=== PATIENT | male | born 1935 | race Caucasian/White ===

== ENCOUNTER → 2017-02-07 | Day surgery (SDC) | payer OTHER ==
[~2017-02-07] MED LIST: ACETAMINOPHEN/HYDROcodone 325 MG/5 MG TAB ONE; AMLO5TAB22 PO; BUPIVACAINE/EPINEPHRINE 0.5% PF 10 ML VIAL ONE; BUSP10 PO; DOXA1TAB67 PO; EPINEPHrine HCL (1:1000) 1 MG/ML VIAL OTHER ONE; GABA300C3 PO; HYDR50TA5 PO; KETOROLAC TROMETHAMINE 30 MG/ML (IVP) VIAL IV PUSH ONE; LACTATED RINGER'S 1000 ML INJ 1,000 ML ONE; LISI40TA PO; METF500 PO; ONDANSETRON HCL 4 MG/2 ML VIAL IV PUSH ONE; PROPOFOL 200 MG/20 ML AMP IV ONE; VITA10002 PO; VITATAB25 PO; ZOCO40TA PO; ceFAZolin INJ 1,000 MG VIAL ONE
--- NOTE | 2017-02-07 21:28 | MP ---
cc: CHEPE LYNN DATE OF SURGERY 02/07/2017 PREOPERATIVE DIAGNOSIS Right knee medial and lateral meniscus tear. POSTOPERATIVE DIAGNOSES Right knee medial and lateral meniscus tear. PROCEDURE Right knee arthroscopic partial medial and lateral meniscectomy. SURGEON Dr. Chepe Lynn ANESTHESIA General. ESTIMATED BLOOD LOSS Less than 10 cc. TOURNIQUET TIME Zero minutes. COMPLICATIONS None. JUSTIFICATION This patient is a 81-year-old male with significant symptoms of pain in regards to his right knee. He has failed conservative treatments. Clinical exams as well as MRI confirmed the above-named findings. The patient counseled as to the risks, benefits and alternatives to the above named surgical procedure. He did wish to proceed with surgery. PROCEDURE IN DETAIL A written consent was obtained. The patient identified by name, taken to the operating room, placed supine on the operating room table, general anesthesia was administered as well as 1 gram of IV Ancef. The right thigh carefully placed in well-padded leg dewey. The right lower extremity prepped and draped using isopropyl alcohol, Hibiclens solution and DuraPrep solution. After time-out was performed a standard medial and lateral parapatellar arthroscope portal was established. 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 The medial compartment revealed a large complex tear posterior horn of the medial meniscus. An arthroscopic biter followed by an arthroscopic shaver was introduced into the medial compartment to perform a partial medial meniscectomy. The meniscal rim was probed and noted to be stable. There was evidence of diffuse grade 2 and early grade 3 chondromalacia changes, medial femoral condyle. The intercondylar notch revealed the anterior posterior cruciate ligaments to be intact. Lateral compartment revealed an unstable tear along the anterior horn of the lateral meniscus. An arthroscopic shaver was introduced in the lateral compartment to perform a partial lateral meniscectomy. The meniscal rim was probed and noted to be stable. There was minimal grade 2 chondromalacia lateral femoral condyle. At the conclusion of the surgical procedure 30 cc of 0.5% Marcaine with epinephrine was injected into the knee joint. The arthroscope portals were closed with 3-0 Prolene suture. Sterile dressing applied. The patient tolerated the procedure well. No intraoperative complications noted. MD HUMBERTO Polo/PRABHJOT /12:09 PM /9:19 PM
== END | disposition home or self-care (01) ==
LOC: ESDC 09:50
PROVIDERS: ATTEND Orthopaedic Surgery Sports Medicine
DX: S83.231A Complex tear of medial meniscus, current injury, right knee, initial encounter (principal); S83.281A Other tear of lateral meniscus, current injury, right knee, initial encounter
CPT/HCPCS: 01400; 29880; J0171; J0690; J1885; J2405; J3010; J7120

== ENCOUNTER 2017-10-09 11:34 | Inpatient (IN) | payer OTHER, MEDICARE ==
[~2017-10-09] VITALS: Ht 177.8 cm; Wt 100.0 kg
[~2017-10-09 11:34] MED LIST changes: -ACETAMINOPHEN/HYDROcodone 325 MG/5 MG TAB ONE; -BUPIVACAINE/EPINEPHRINE 0.5% PF 10 ML VIAL ONE; -EPINEPHrine HCL (1:1000) 1 MG/ML VIAL OTHER ONE; -KETOROLAC TROMETHAMINE 30 MG/ML (IVP) VIAL IV PUSH ONE; -LACTATED RINGER'S 1000 ML INJ 1,000 ML ONE; -ONDANSETRON HCL 4 MG/2 ML VIAL IV PUSH ONE; -PROPOFOL 200 MG/20 ML AMP IV ONE; -ceFAZolin INJ 1,000 MG VIAL ONE
[2017-10-09 11:53] VITALS: BP 174/70; PULSE 70; RESP 20; TEMP 98.9; O2SAT 100
[2017-10-09 12:10] VITALS: O2SAT 99
[2017-10-09 12:30] LABS: AUTOMATED NEUTROPHIL # 6.2 TH/MM3 (1.8-7.7); BASOPHIL # 0.2 TH/MM3 (0-0.2); BASOPHIL % 1.8 % (0.0-2.0); EOSINOPHIL # 0.1 TH/MM3 (0-0.4); EOSINOPHIL % 1.8 % (0.0-4.0); HEMATOCRIT 36.1 % (39.0-51.0); HEMOGLOBIN 12.3 GM/DL (13.0-17.0); LYMPH % 17.2 % (9.0-44.0); LYMPHOCYTE # 1.5 TH/MM3 (1.0-4.8); MEAN CELL VOLUME 83.4 FL (80.0-100.0); MEAN CORPUSCULAR HEMOGLOBIN 28.5 PG (27.0-34.0); MEAN CORPUSCULAR HGB CONC 34.1 % (32.0-36.0); MEAN PLATELET VOLUME 7.3 FL (7.0-11.0); MONOCYTE # 0.5 TH/MM3 (0-0.9); NEUT % 73.2 % (16.0-70.0); PLATELET COUNT 314 TH/MM3 (150-450); RED BLOOD COUNT 4.33 MIL/MM3 (4.50-5.90); RED CELL DISTRIBUTION WIDTH 13.9 % (11.6-17.2); WHITE BLOOD COUNT 8.5 TH/MM3 (4.0-11.0)
--- NOTE | 2017-10-09 12:44 | PD ---
HPI Chief Complaint: Flank/Kidney Pain Time Seen by Provider: 12:17 Travel History International Travel<30 days: No Contact w/Intl Traveler<30days: No Traveled to known affect area: No History of Present Illness HPI 81yo M with PMH of bladder CA s/p resection now cancer free fro 4 years, neuropathy presents to the ED with c/o left sided back pain that radiates to left abdomen for a few weeks. Pain is sharp and exacerbated with movement. Said it is so bad that he can hardly lift his legs because he has pain if he does. Pt has stent in left kidney and tried to call his urologist Dr. Mckeon but has not been able to see him. Pt's primary care ordered at CT 10/02/17 and he said there is a stent there. Does not know if any abnormality. Pt said the pain medication he calls in does not work. Pt also had US of bilateral lower extremity 2 weeks ago that showed no DVT. Denies any fever, chest pain, sob, n/ v, trauma, dysuria, hematuria, new focal weakness or numbness. PFSH Past Medical History Cancer: Yes (BLADDER) Cardiovascular Problems: Yes Diabetes: Yes Patient Takes Glucophage: No Diminished Hearing: No Endocrine: Yes Genitourinary: Yes (hx of bladder cancer) Hepatitis: Yes (reports he had when he was "17") Hiatal Hernia: No Hypertension: Yes Immune Disorder: No Musculoskeletal: Yes (ARTHRITIS) Neurologic: No Psychiatric: Yes (anxiety) Reproductive: No Respiratory: Yes (SLEEP APNEA) Immunizations Current: Yes (FLU SHOT) Thyroid Disease: No Tetanus Vaccination: < 5 Years Past Surgical History Abdominal Surgery: No AICD: No Cardiac Surgery: No Ear Surgery: No Endocrine Surgery: No Eye Surgery: No Genitourinary Surgery: Yes (LEFT STENT PLACEMENT 2014) Gynecologic Surgery: No Joint Replacement: No Oral Surgery: Yes (TEETH EXTRACTION) Pacemaker: No Thoracic Surgery: No Other Surgery: Yes (KYLEIGH ANAL ABSCESS) Social History Alcohol Use: No Tobacco Use: No Substance Use: No Allergies-Medications (Allergen,Severity, Reaction): Coded Allergies: No Known Allergies (Unverified Allergy, Unknown, 10/09/17) Reported Meds & Prescriptions Reported Meds & Active Scripts Active Reported Hydrochlorothiazide 50 Mg Tab 50 Mg PO DAILY Lisinopril 20 Mg Tab Unknown Dose PO DAILY Simvastatin 40 Mg Tab 40 Mg PO HS Doxazosin (Doxazosin Mesylate) 4 Mg Tab 4 Mg PO BID Gabapentin 300 Mg Cap 300 Mg PO BID Buspirone (Buspirone HCl) 10 Mg Tab 10 Mg PO BID Review of Systems Except as stated in HPI: all other systems reviewed are Neg Physical Exam Narrative GENERAL: 81yo M in moderate distress. SKIN: Focused skin assessment warm/dry. HEAD: Atraumatic. Normocephalic. EYES: Pupils equal and round. No scleral icterus. No injection or drainage. ENT: No nasal bleeding or discharge. Mucous membranes pink and moist. NECK: Trachea midline. No JVD. CARDIOVASCULAR: Regular rate and rhythm. No murmur appreciated. RESPIRATORY: No accessory muscle use. Clear to auscultation. Breath sounds equal bilaterally. GASTROINTESTINAL: Abdomen soft, +TTP LLQ. +TTP left flank. BACK: Pt unable to sit up or turn because of pain and said pain is on left side. MUSCULOSKELETAL: No obvious deformities. No clubbing. No cyanosis. +Bilateral lower extremity edema. NEUROLOGICAL: Awake and alert. No obvious cranial nerve deficits. Pt unable to lift bilateral legs due to pain in back and abdomen but able to push down and dorsiflex with equal strength. Sensation intact. Normal speech. PSYCHIATRIC: Appropriate mood and affect; insight and judgment normal. Data Data Last Documented VS Vital Signs Date Time Temp Pulse Resp B/P (MAP) Pulse Ox O2 Delivery O2 Flow Rate FiO2 10/09/17 14:07 74 20 180/76 (110) 98 Room Air 10/09/17 11:53 98.9 Orders Orders Urinalysis - C+S If Indicated (10/09/17 12:05) Complete Blood Count With Diff (10/09/17 12:05) Comprehensive Metabolic Panel (10/09/17 12:05) Iv Access Insert/Monitor (10/09/17 12:05) Oxygen Administration (10/09/17 12:05) Oximetry (10/09/17 12:05) Lipase (10/09/17 12:05) Ct Abd/Pel W/O Iv Contrast (10/09/17 ) Morphine Inj (Morphine Inj) (10/09/17 12:45) Morphine Inj (Morphine Inj) (10/09/17 14:30) Diazepam (Valium) (10/09/17 18:15) Admit Order (Ed Use Only) (10/09/17 18:17) Labs Laboratory Tests Test 10/09/17 12:00 10/09/17 16:10 White Blood Count 8.5 TH/MM3 Red Blood Count 4.33 MIL/MM3 Hemoglobin 12.3 GM/DL Hematocrit 36.1 % Mean Corpuscular Volume 83.4 FL Mean Corpuscular Hemoglobin 28.5 PG Mean Corpuscular Hemoglobin Concent 34.1 % Red Cell Distribution Width 13.9 % Platelet Count 314 TH/MM3 Mean Platelet Volume 7.3 FL Neutrophils (%) (Auto) 73.2 % Lymphocytes (%) (Auto) 17.2 % Monocytes (%) (Auto) 6.0 % Eosinophils (%) (Auto) 1.8 % Basophils (%) (Auto) 1.8 % Neutrophils # (Auto) 6.2 TH/MM3 Lymphocytes # (Auto) 1.5 TH/MM3 Monocytes # (Auto) 0.5 TH/MM3 Eosinophils # (Auto) 0.1 TH/MM3 Basophils # (Auto) 0.2 TH/MM3 CBC Comment DIFF FINAL Differential Comment Blood Urea Nitrogen 31 MG/DL Creatinine 1.83 MG/DL Random Glucose 161 MG/DL Total Protein 7.8 GM/DL Albumin 3.2 GM/DL Calcium Level 9.2 MG/DL Alkaline Phosphatase 68 U/L Aspartate Amino Transf (AST/SGOT) 13 U/L Alanine Aminotransferase (ALT/SGPT) 22 U/L Total Bilirubin 0.5 MG/DL Sodium Level 140 MEQ/L Potassium Level 3.5 MEQ/L Chloride Level 101 MEQ/L Carbon Dioxide Level 28.4 MEQ/L Anion Gap 11 MEQ/L Estimat Glomerular Filtration Rate 36 ML/MIN Lipase 62 U/L Urine Color LIGHT-YELLOW Urine Turbidity CLEAR Urine pH 6.0 Urine Specific [place] 1.012 Urine Protein 30 mg/dL Urine Glucose (UA) NEG mg/dL Urine Ketones NEG mg/dL Urine Occult Blood TRACE Urine Nitrite NEG Urine Bilirubin NEG Urine Urobilinogen LESS THAN 2.0 MG/DL Urine Leukocyte Esterase NEG Urine RBC 8 /hpf Urine WBC 1 /hpf Urine Squamous Epithelial Cells <1 /hpf Urine Bacteria RARE /hpf Urine Mucus FEW /lpf Microscopic Urinalysis Comment CULT NOT INDICATED MDM Medical Decision Making Medical Screen Exam Complete: Yes Emergency Medical Condition: Yes Differential Diagnosis Musculoskeletal pain vs. colitis vs. nephrolithiasis Narrative Course 81yo M with left back pain radiating to left abdomen that is worst with movement. Labs and CT were completed because pt is very tender on exam. Labs reviewed, no leukocytosis. H/H 12.3/36.1 which is better than baseline. BUN/ creatinine at 31/1.83 which is also better than baseline. Lipase low. UA showed WBC 1. Culture not indicated. CT a/p showed left sided double J ureteral stent in good position with persistent moderate hydroureteronephrosis on the left. No right sided calculi or obstructive uropathy. Pt given multiple doses of morphine but is still in so much pain, he cant lift his legs and he cant sit up or walk due to pain. Pt denies any fall. Discussed with Dr. Lewis and admitted to his service. Diagnosis Primary Impression: Intractable pain Admitting Information Admitting Physician Requests: Rand Allen DO Oct 09, 2017 12:44
[2017-10-09] MEDS ORDERED: MORPHINE SULFATE 4 MG/ML INJ IV PUSH ONE ×2 (12:45→14:30)
[2017-10-09 12:53] LABS: ALBUMIN 3.2 GM/DL (3.4-5.0); ALT (GPT) 22 U/L (12-78); AST (GOT) 13 U/L (15-37); BICARBONATE 28.4 MEQ/L (21.0-32.0); BLOOD UREA NITROGEN 31 MG/DL (7-18); CALCIUM 9.2 MG/DL (8.5-10.1); CHLORIDE 101 MEQ/L (98-107); CREATININE 1.83 MG/DL (0.60-1.30); GLOMERULAR FILTRATION RATE 36 ML/MIN (>89); GLUCOSE,RANDOM 161 MG/DL (74-106); SODIUM (NA) 140 MEQ/L (136-145)
[2017-10-09 12:55] LABS: ALKALINE PHOSPHATASE 68 U/L (45-117); TOTAL BILIRUBIN ADULT 0.5 MG/DL (0.2-1.0); TOTAL PROTEIN 7.8 GM/DL (6.4-8.2)
[2017-10-09 14:07] VITALS: BP 180/76; PULSE 74; RESP 20; O2SAT 98
--- NOTE | 2017-10-09 14:12 | RADRPT ---
EXAM DATE/TIME: 10/09/2017 13:32 [facility] COMPARISON: No previous studies available for comparison. INDICATIONS : Left flank pain for one week. ORAL CONTRAST: No oral contrast ingested. RADIATION DOSE: 16.97 CTDIvol (mGy) MEDICAL HISTORY : Hypertension. Carcinoma, bladder. Diabetes mellitus type 2. SURGICAL HISTORY : None. ENCOUNTER: Initial ACUITY: 1 day PAIN SCALE: 10/10 LOCATION: abdomen TECHNIQUE: Volumetric scanning of the abdomen and pelvis was performed. Using automated exposure control and ad justment of the mA and/or kV according to patient size, radiation dose was kept as low as reasonably achievable to obtain optimal diagnostic quality images. DICOM format image data is available electro nically for review and comparison. FINDINGS: Linear scarring in the left lower lobe. Minimal basilar atelectasis. No acute findings in the liver, spleen, adrenals or pancreas. There is moderate left-sided hydronephr osis with a double-J stent looped proximally in the left renal pelvis and distally in the bladder. Le ft ureter mildly dilated as well. Right kidney and ureter are unremarkable. Small hiatal hernia. There numerous layering gallstones in the gallbladder. No bowel obstruction. No free air or free flui d. No adenopathy. CONCLUSION: 1. Left-sided double-J ureteral stent in good position with persistent moderate hydroureteronephrosis on the left. 2. No right-sided calculi or obstructive uropathy. 3. Numerous layering gallstones in the gallbladder. 4. Mild constipation. Nick Quinteros MD on October 09, 2017 at 14:03 Board Certified Radiologist. This report was verified electronically.
[2017-10-09 17:07] LABS: BACTERIA, URINE RARE /hpf; BILIRUBIN, URINE NEG (NEG); BLOOD, URINE TRACE (NEG); GLUCOSE,URINE NEG (NEG); KETONE, URINE NEG (NEG); MUCUS URINE FEW /lpf (OCC); NITRITE,URINE NEG (NEG); SQUAMOUS EPITHELIAL CELL URINE <1 /hpf (0-5); URINE COLOR LIGHT-YELLOW (YELLW/STRAW); URINE LEUKOCYTE ESTERASE NEG (NEG)
[2017-10-09] MEDS ORDERED: DIAZEPAM 5 MG TAB PO ONE (18:15)
[2017-10-09 18:27] VITALS: BP 201/81; PULSE 84; RESP 17; O2SAT 98
[2017-10-09 20:34] VITALS: BP 177/77; PULSE 83; RESP 18; O2SAT 97
[2017-10-09] MEDS ORDERED: SENNOSIDES 8.6 MG TAB PO PRN (21:30)
[2017-10-09] MEDS ORDERED: cloNIDine HCL 0.1 MG TAB PO PRN (21:30)
[2017-10-09] MEDS ORDERED: MAGNESIUM HYDROXIDE SUSP 30 ML CUP PO PRN (21:30)
[2017-10-09] MEDS ORDERED: ONDANSETRON HCL 4 MG/2 ML VIAL IVP PRN (21:30)
[2017-10-09] MEDS ORDERED: ACETAMINOPHEN 325 MG TAB PO PRN (21:30)
[2017-10-09] MEDS ORDERED: SODIUM CHLORIDE 0.9% FLUSH 10 ML FLUSH IV FLUSH PRN (21:30)
[2017-10-09] MEDS ORDERED: LACTULOSE SYRUP 20 GM/30 ML CUP PO PRN (21:30)
[2017-10-09] MEDS ORDERED: GLUCAGON 1 MG/ML VIAL OTHER PRN (21:30)
[2017-10-09] MEDS ORDERED: DEXTROSE 50% IN WATER 50 ML VIAL(D50) IV PUSH PRN (21:30)
[2017-10-09] MEDS ORDERED: BISACODYL 10 MG SUPP RECTAL PRN (21:30)
[2017-10-09] MEDS ORDERED: NALOXONE HCL 0.4 MG/ML AMP IV PUSH PRN (21:30)
--- NOTE | 2017-10-09 21:38 | HHI.HP ---
HPI Service [facility] Primary Care Physician Unknown Admission Diagnosis Intractable pain Diagnoses: Travel History International Travel<30 Days: No Contact w/Intl Traveler <30 Da: No Traveled to Known Affected Are: No History of Present Illness 81-year-old male with a past medical history significant for a history of bladder cancer 4 years ago, diabetes mellitus, hypertension, hyperlipidemia and diabetic neuropathy presents to the emergency department with left-sided back/ flank pain 1 week. The patient reports that his urologist is Dr. Mckeno and he missed an appointment with him yesterday because his pain was so severe he was unable to get out of bed. He reports that he has a J stent was exchanged approximately every 6 months. He reports his left-sided back/flank pain is severe in nature and is worse when he moves his legs. He is unable to sit up because the pain is so severe. He does have a history of sciatica however he reports this was on his right side. He denies any dysuria or blood in his urine. Denies fever/chills. Is able to move his lower extremities spontaneously however experiences severe pain with movement. Review of Systems Except as stated in HPI: all other systems reviewed are Neg Past Family Social History Past Medical History Diabetes mellitus Hypertension Hyperlipidemia Neuropathy History of bladder cancer 4 years ago Past Surgical History Perianal abscess drainage Bilateral Achilles repair Reported Medications Reported Meds & Active Scripts Active Reported Zocor 40 mg (Simvastatin) 40 Mg Tab 1 Tab PO BID Vitamin B12 (Cyanocobalamin) 1,000 Mcg Tab 1,000 Mcg PO DAILY Gabapentin 300 Mg Cap 300 Mg PO BID Hctz (Hydrochlorothiazide) 50 Mg Tab 50 Mg PO DAILY Prinivil 40 mg (Lisinopril) 40 Mg Tab 1 Tab PO DAILY Vitamin D-1000 (Cholecalciferol) 1,000 Unit Tab 2,000 Unit PO DAILY Doxazosin (Doxazosin Mesylate) 8 Mg Tab 4 Mg PO BID Buspar 10 mg Tab (Buspirone HCl) 10 Mg Tab 10 Mg PO Q12 Glucophage 500 mg (Metformin HCl) 500 Mg Tab 500 Mg PO BIDPC Amlodipine Besylate 5 mg (Amlodipine Besylate) 5 Mg Tab 1 Tab PO DAILY Allergies: Coded Allergies: No Known Allergies (Unverified Allergy, Unknown, 10/09/17) Family History Mom of MA at age 69 Social History Note history of smoking. Rare alcohol. Denies illicit drugs. Physical Exam Vital Signs Vital Signs Date Time Temp Pulse Resp B/P (MAP) Pulse Ox O2 Delivery O2 Flow Rate FiO2 10/09/17 20:34 83 18 177/77 (110) 97 10/09/17 18:27 84 17 201/81 (121) 98 Room Air 10/09/17 14:07 74 20 180/76 (110) 98 Room Air 10/09/17 12:10 99 10/09/17 12:10 99 Room Air 10/09/17 11:53 98.9 70 20 174/70 (104) 100 Physical Exam GENERAL: Obese, male lying in bed SKIN: No rashes, ecchymoses or lesions. Cool and dry. HEAD: Atraumatic. Normocephalic. No temporal or scalp tenderness. EYES: Pupils equal round and reactive. Extraocular motions intact. No scleral icterus. No injection or drainage. ENT: Nose without bleeding, purulent drainage or septal hematoma. Throat without erythema, tonsillar hypertrophy or exudate. Uvula midline. Airway patent. NECK: Trachea midline. No JVD or lymphadenopathy. Supple, nontender, no meningeal signs. CARDIOVASCULAR: Regular rate and rhythm without murmurs, gallops, or rubs. RESPIRATORY: Clear to auscultation. Breath sounds equal bilaterally. No wheezes , rales, or rhonchi. GASTROINTESTINAL: Abdomen soft, non-tender, nondistended. No hepato-splenomegaly , or palpable masses. No guarding. MUSCULOSKELETAL: Extremities without clubbing, cyanosis, or edema. No joint tenderness, effusion, or edema noted. No calf tenderness. NEUROLOGICAL: Awake and alert. Cranial nerves II through XII intact. Motor and sensory grossly within normal limits. Five out of 5 muscle strength in all muscle groups. Normal speech. Laboratory Laboratory Tests Test 10/09/17 12:00 10/09/17 16:10 White Blood Count 8.5 Red Blood Count 4.33 Hemoglobin 12.3 Hematocrit 36.1 Mean Corpuscular Volume 83.4 Mean Corpuscular Hemoglobin 28.5 Mean Corpuscular Hemoglobin Concent 34.1 Red Cell Distribution Width 13.9 Platelet Count 314 Mean Platelet Volume 7.3 Neutrophils (%) (Auto) 73.2 Lymphocytes (%) (Auto) 17.2 Monocytes (%) (Auto) 6.0 Eosinophils (%) (Auto) 1.8 Basophils (%) (Auto) 1.8 Neutrophils # (Auto) 6.2 Lymphocytes # (Auto) 1.5 Monocytes # (Auto) 0.5 Eosinophils # (Auto) 0.1 Basophils # (Auto) 0.2 CBC Comment DIFF FINAL Differential Comment Blood Urea Nitrogen 31 Creatinine 1.83 Random Glucose 161 Total Protein 7.8 Albumin 3.2 Calcium Level 9.2 Alkaline Phosphatase 68 Aspartate Amino Transf (AST/SGOT) 13 Alanine Aminotransferase (ALT/SGPT) 22 Total Bilirubin 0.5 Sodium Level 140 Potassium Level 3.5 Chloride Level 101 Carbon Dioxide Level 28.4 Anion Gap 11 Estimat Glomerular Filtration Rate 36 Lipase 62 Urine Color LIGHT-YELLOW Urine Turbidity CLEAR Urine pH 6.0 Urine Specific [place] 1.012 Urine Protein 30 Urine Glucose (UA) NEG Urine Ketones NEG Urine Occult Blood TRACE Urine Nitrite NEG Urine Bilirubin NEG Urine Urobilinogen LESS THAN 2.0 Urine Leukocyte Esterase NEG Urine RBC 8 Urine WBC 1 Urine Squamous Epithelial Cells <1 Urine Bacteria RARE Urine Mucus FEW Microscopic Urinalysis Comment CULT NOT INDICATED Result Diagram: 10/09/17 1200 10/09/17 1200 Caprini VTE Risk Assessment Caprini VTE Risk Assessment: Mod/High Risk (score >= 2) Caprini Risk Assessment Model Point Value = 1 Point Value = 2 Point Value = 3 Point Value = 5 Age 41-60 Minor surgery BMI > 25 kg/m2 Swollen legs Varicose veins or History of unexplained or recurrent spontaneous Oral contraceptives or hormone replacement Sepsis (< 1 month) Serious lung disease, including pneumonia (< 1 month) Abnormal pulmonary function Acute myocardial infarction Congestive heart failure (< 1 month) History of inflammatory bowel disease Medical patient at bed rest Age 61-74 Arthroscopic surgery Major open surgery (> 45 min) Laparoscopic surgery (> 45 min) Malignancy Confined to bed (> 72 hours) Immobilizing plaster cast Central venous access Age >= 75 History of VTE Family history of VTE Factor V Leiden Prothrombin [id number] Lupus anticoagulant Anticardiolipin antibodies Elevated serum homocysteine Heparin-induced thrombocytopenia Other congenital or acquired thrombophilia Stroke (< 1 month) Elective arthroplasty Hip, pelvis, or leg fracture Acute spinal cord injury (< 1 month) Prophylaxis Regimen Total Risk Factor Score Risk Level Prophylaxis Regimen 0-1 Low Early ambulation 2 Moderate Order ONE of the following: *Sequential Compression Device (SCD) *Heparin 5000 units SQ BID 3-4 Higher Order ONE of the following medications: *Heparin 5000 units SQ TID *Enoxaparin/Lovenox 40 mg SQ daily (WT < 150 kg, CrCl > 30 mL/min) *Enoxaparin/Lovenox 30 mg SQ daily (WT < 150 kg, CrCl > 10-29 mL/min) *Enoxaparin/Lovenox 30 mg SQ BID (WT < 150 kg, CrCl > 30 mL/min) AND/OR *Sequential Compression Device (SCD) 5 or more Highest Order ONE of the following medications: *Heparin 5000 units SQ TID (Preferred with Epidurals) *Enoxaparin/Lovenox 40 mg SQ daily (WT < 150 kg, CrCl > 30 mL/min) *Enoxaparin/Lovenox 30 mg SQ daily (WT < 150 kg, CrCl > 10-29 mL/min) *Enoxaparin/Lovenox 30 mg SQ BID (WT < 150 kg, CrCl > 30 mL/min) AND *Sequential Compression Device (SCD) Assessment and Plan Assessment and Plan Assessment/plan: 1. Left-sided back/flank pain Unclear etiology Patient with history of bladder cancer [address] of the abdomen/pelvis shows left-sided double-J stent in good position with persistent moderate hydroureteronephrosis on the left Urology consulted, appreciate recommendations. Patient is known to Dr. Mckeon UA negative for urinary tract infection May be neuro/musculoskeletal in origin; MRI of the lumbar spine pending Morphine for pain 2. Diabetes mellitus Holding home oral anti-hyperglycemics Sliding scale insulin Monitor blood glucose 3. Hypertension/hyperlipidemia/neuropathy Continue home medications once reconciled Clonidine when necessary 4. Chronic kidney disease Creatinine 1.83, was 2.19 in 2016 Monitor renal function FEN Heart healthy, diabetic diet Electrolytes: Monitor and replete when necessary Heparin Sherrie Villa MD Oct 09, 2017 21:38
[2017-10-09] MEDS: DOXAZOSIN MESYLATE 4 MG TAB PO SCH (21:55)
[2017-10-09] MEDS ORDERED: GABA300C5 PO (21:59)
[2017-10-09] MEDS ORDERED: DOXA1TAB34 PO (21:59)
[2017-10-09] MEDS ORDERED: SIMV40TA PO (21:59)
[2017-10-09] MEDS ORDERED: HYDR50TA3 PO (21:59)
[2017-10-09] MEDS ORDERED: BUSP10TA PO (21:59)
[2017-10-09] MEDS ORDERED: LISI-515 PO (21:59)
[2017-10-09] MEDS: HEPARIN SODIUM - SQ 10,000 UNITS/ML VIAL SQ SCH (23:10)
[2017-10-09] MEDS: MORPHINE SULFATE 4 MG/ML INJ IV PUSH PRN (23:16)
[2017-10-10 00:04] VITALS: BP 172/74; PULSE 93; RESP 18; TEMP 98.2; O2SAT 94
[2017-10-10 04:55] VITALS: BP 130/63; PULSE 93; RESP 18; TEMP 98.8; O2SAT 98
[2017-10-10] MEDS: HEPARIN SODIUM - SQ 10,000 UNITS/ML VIAL SQ SCH ×3 (06:19→21:28)
[2017-10-10] MEDS: MORPHINE SULFATE 4 MG/ML INJ IV PUSH PRN ×4 (06:28→19:19)
[2017-10-10 07:44] LABS: AUTOMATED NEUTROPHIL # 7.2 TH/MM3 (1.8-7.7); BASOPHIL # 0.1 TH/MM3 (0-0.2); BASOPHIL % 1.2 % (0.0-2.0); EOSINOPHIL # 0.1 TH/MM3 (0-0.4); EOSINOPHIL % 1.2 % (0.0-4.0); HEMATOCRIT 35.8 % (39.0-51.0); HEMOGLOBIN 12.3 GM/DL (13.0-17.0); LYMPHOCYTE # 1.2 TH/MM3 (1.0-4.8); MEAN CELL VOLUME 83.1 FL (80.0-100.0); MEAN CORPUSCULAR HEMOGLOBIN 28.5 PG (27.0-34.0); MEAN CORPUSCULAR HGB CONC 34.3 % (32.0-36.0); MEAN PLATELET VOLUME 7.5 FL (7.0-11.0); MONO % 7.6 % (0.0-8.0); MONOCYTE # 0.7 TH/MM3 (0-0.9); PLATELET COUNT 329 TH/MM3 (150-450); RED BLOOD COUNT 4.31 MIL/MM3 (4.50-5.90); RED CELL DISTRIBUTION WIDTH 13.9 % (11.6-17.2); WHITE BLOOD COUNT 9.4 TH/MM3 (4.0-11.0)
[2017-10-10 07:54] VITALS: BP 140/81; PULSE 92; RESP 24; TEMP 98.2; O2SAT 93
[2017-10-10 08:06] LABS: BICARBONATE 25.9 MEQ/L (21.0-32.0); CALCIUM 9.6 MG/DL (8.5-10.1); CREATININE 1.8 MG/DL (0.60-1.30)
[2017-10-10] MEDS: DOCUSATE SODIUM 50 MG/SENNA 8.6 MG TAB PO SCH ×2 (08:39→21:27)
[2017-10-10] MEDS: SODIUM CHLORIDE 0.9% FLUSH 10 ML FLUSH IV FLUSH SCH ×2 (08:39→21:27)
[2017-10-10] MEDS: DOXAZOSIN MESYLATE 4 MG TAB PO SCH ×2 (08:39→21:27)
[2017-10-10] MEDS: INSULIN ASPART SUPPLEMENTAL SCALE SQ SCH ×4 (08:43→21:00)
[2017-10-10 11:06] VITALS: BP 150/70; PULSE 93; RESP 16; TEMP 98; O2SAT 94
--- NOTE | 2017-10-10 14:16 | HHI.PR ---
Subjective Remarks The patient is in bed he appears to not acute distress at this time. Says pain in his back is fairly controlled however he complains more pain on his left leg. Says he has chronic pain in his left leg and he has neuropathy and follows up as outpatient. No fever or chills. No nausea or vomiting no diarrhea or constipation. Objective Vitals Vital Signs Date Time Temp Pulse Resp B/P (MAP) Pulse Ox O2 Delivery O2 Flow Rate FiO2 10/10/17 11:06 98.0 93 16 150/70 (96) 94 10/10/17 07:54 98.2 92 24 140/81 (100) 93 10/10/17 04:55 98.8 93 18 130/63 (85) 98 10/10/17 00:04 98.2 93 18 172/74 (106) 94 10/09/17 20:34 83 18 177/77 (110) 97 10/09/17 18:27 84 17 201/81 (121) 98 Room Air I/O 10/09/17 10/09/17 10/09/17 10/10/17 10/10/17 10/10/17 07:00 15:00 23:00 07:00 15:00 23:00 Intake Total 200 ml Balance 200 ml Intake Oral 200 ml Result Diagram: 10/10/17 0615 10/10/17 0615 Imaging Last Impressions Abdomen/Pelvis CT 10/09/17 0000 Signed Impressions: Service Date/Time: September 13:32 - CONCLUSION: 1. Left- sided double-J ureteral stent in good position with persistent moderate hydroureteronephrosis on the left. 2. No right-sided calculi or obstructive uropathy. 3. Numerous layering gallstones in the gallbladder. 4. Mild constipation. Nick Quinteros MD Objective Remarks GENERAL: Obese, male lying in bed CARDIOVASCULAR: Regular rate and rhythm without murmurs, gallops, or rubs. RESPIRATORY: Clear to auscultation. Breath sounds equal bilaterally. No wheezes , rales, or rhonchi. GASTROINTESTINAL: Abdomen soft, non-tender, nondistended. No hepato-splenomegaly , or palpable masses. No guarding. MUSCULOSKELETAL: Extremities without clubbing, cyanosis, or edema. No joint tenderness, effusion, or edema noted. No calf tenderness. NEUROLOGICAL: Awake and alert. Cranial nerves II through XII intact. Motor and sensory grossly within normal limits. Five out of 5 muscle strength in all muscle groups. Normal speech. A/P Assessment and Plan 1. Left-sided back/flank pain Unclear etiology Patient with history of bladder cancer [address] of the abdomen/pelvis shows left-sided double-J stent in good position with persistent moderate hydroureteronephrosis on the left Urology consulted, appreciate recommendations. Patient is known to Dr. Linda FELDMAN negative for urinary tract infection May be neuro/musculoskeletal in origin; MRI of the lumbar spine pending Morphine for pain Consult urology 2. Diabetes mellitus Holding home oral anti-hyperglycemics Sliding scale insulin Monitor blood glucose 3. Hypertension/hyperlipidemia/neuropathy Continue home medications once reconciled Clonidine when necessary 4. Chronic kidney disease Creatinine 1.83, was 2.19 in 2016 Monitor renal function FEN Heart healthy, diabetic diet Electrolytes: Monitor and replete when necessary Heparin Urology consult pending Discharge when improved and cleared by consultants Yomaira Hernandez MD Oct 10, 2017 14:16
--- NOTE | 2017-10-10 14:59 | PD.CONS ---
HPI Service Urology Consult Requested By Dr Villa Reason for Consult H/o Bladder CA and left JJ stent with hydro on CT Primary Care Physician Unknown Diagnosis: (1) Bladder cancer ICD Code: C67.9 - Malignant neoplasm of bladder, unspecified (2) Ureteral obstruction, left ICD Code: N13.5 - Crossing vessel and stricture of ureter without hydronephrosis History of Present Illness 81 y.o M known to our practice, pt of Dr Mckeon due to his h/o Bladder CA, s/ p TURBT x 4y/a and lt stent placement due to scar tissue. Last time it was changed 6mo/a and pt was recommended to do next stent exchange in 12mo. He is currently admitted due to his rt sided pain, weakness difficulties to ambutate and states that has L spine disc problems that got worse and causing those symptoms. no left flank pain, no f/c/n/v, no hematuria. Slightly elevated Cr but he has CKD and its stable. CT scan reviewed, stent is in a good position, there is a mild left hydro present. Pt denies any issues with voiding and emptying his bladder but on CT scan his bladder looks distended. Review of Systems Except as stated in HPI: all other systems reviewed are Neg Past Family Social History Past Medical History Diabetes mellitus Hypertension Hyperlipidemia Neuropathy History of bladder cancer 4 years ago Past Surgical History Perianal abscess drainage Bilateral Achilles repair TURBT Allergies: Coded Allergies: No Known Allergies (Unverified Allergy, Unknown, 10/09/17) Family History Mom of OR at age 69 Social History Note history of smoking. Rare alcohol. Denies illicit drugs. Physical Exam Vital Signs Date Time Temp Pulse Resp B/P (MAP) Pulse Ox O2 Delivery O2 Flow Rate FiO2 10/10/17 11:06 98.0 93 16 150/70 (96) 94 10/10/17 07:54 98.2 92 24 140/81 (100) 93 10/10/17 04:55 98.8 93 18 130/63 (85) 98 10/10/17 00:04 98.2 93 18 172/74 (106) 94 10/09/17 20:34 83 18 177/77 (110) 97 10/09/17 18:27 84 17 201/81 (121) 98 Room Air Physical Exam GENERAL: This is a well-nourished, well-developed patient, in no apparent distress. EYES: Pupils equal round and reactive. CARDIOVASCULAR: Regular rate and rhythm without murmurs RESPIRATORY: Clear to auscultation. Breath sounds equal bilaterally. GASTROINTESTINAL: Abdomen soft, non-tender, ND GENITOURINARY: No CVAT, normal genital exam MUSCULOSKELETAL: Extremities without clubbing, cyanosis, or edema. NEUROLOGICAL: Awake and alert. Lab results reviewed: Yes Laboratory Tests Test 10/09/17 16:10 10/10/17 06:15 Urine Color LIGHT-YELLOW Urine Turbidity CLEAR Urine pH 6.0 Urine Specific [place] 1.012 Urine Protein 30 Urine Glucose (UA) NEG Urine Ketones NEG Urine Occult Blood TRACE Urine Nitrite NEG Urine Bilirubin NEG Urine Urobilinogen LESS THAN 2.0 Urine Leukocyte Esterase NEG Urine RBC 8 Urine WBC 1 Urine Squamous Epithelial Cells <1 Urine Bacteria RARE Urine Mucus FEW Microscopic Urinalysis Comment CULT NOT INDICATED White Blood Count 9.4 Red Blood Count 4.31 Hemoglobin 12.3 Hematocrit 35.8 Mean Corpuscular Volume 83.1 Mean Corpuscular Hemoglobin 28.5 Mean Corpuscular Hemoglobin Concent 34.3 Red Cell Distribution Width 13.9 Platelet Count 329 Mean Platelet Volume 7.5 Neutrophils (%) (Auto) 77.0 Lymphocytes (%) (Auto) 13.0 Monocytes (%) (Auto) 7.6 Eosinophils (%) (Auto) 1.2 Basophils (%) (Auto) 1.2 Neutrophils # (Auto) 7.2 Lymphocytes # (Auto) 1.2 Monocytes # (Auto) 0.7 Eosinophils # (Auto) 0.1 Basophils # (Auto) 0.1 CBC Comment DIFF FINAL Differential Comment Blood Urea Nitrogen 29 Creatinine 1.80 Random Glucose 127 Calcium Level 9.6 Sodium Level 139 Potassium Level 3.8 Chloride Level 102 Carbon Dioxide Level 25.9 Anion Gap 11 Estimat Glomerular Filtration Rate 37 Result Diagram: 10/10/17 0615 10/10/17 0615 Personally reviewed images: Yes Imaging Last Impressions Abdomen/Pelvis CT 10/09/17 0000 Signed Impressions: Service Date/Time: September 13:32 - CONCLUSION: 1. Left- sided double-J ureteral stent in good position with persistent moderate hydroureteronephrosis on the left. 2. No right-sided calculi or obstructive uropathy. 3. Numerous layering gallstones in the gallbladder. 4. Mild constipation. Nick Quinteros MD Assessment and Plan Assessment and Plan 81y.o M with back problems and rt sided pain Also h/o Bladder CA and left JJ stent with mild hydro - Continue evaluation and management by primary team - Follow up on MRI results - Left stent is in good position and no additional intervention by needed - Left hydr is possibly due to his overdistended bladder seen on CT Recommended to do bladder scan after voiding and if in retention 200cc or more needs palacios catheter placement Pt to follow up with Dr Mckeon after discharge, if will need palacios catheter, voiding trial will be done as outpt when will see Dr Mckeon Discussed Condition With Dr Ashli HEREDIA attending who agrees with this plan Dayron Cummings Oct 10, 2017 14:59
[2017-10-10 20:42] VITALS: BP 143/66; PULSE 94; RESP 18; TEMP 98.4; O2SAT 94
[2017-10-10] MEDS ORDERED: DOXAZOSIN MESYLATE 4 MG TAB PO SCH (21:00)
[2017-10-10] MEDS: PRAVASTATIN SOD 80 MG TAB PO SCH (21:28)
[2017-10-10] MEDS: busPIRone HCL 10 MG TAB PO SCH (21:28)
--- NOTE | 2017-10-10 22:49 | RADRPT ---
EXAM DATE/TIME: 10/10/2017 19:46 [facility] COMPARISON: No previous studies available for comparison. INDICATIONS : Pain. Low back and right leg pain. MEDICAL HISTORY : Diabetes mellitus type 2. Hypertension. Carcinoma, bladder. SURGICAL HISTORY : Bilateral achilles tendon repair. ENCOUNTER: Initial ACUITY: 1 month PAIN SCORE: 5/10 LOCATION: [facility] TECHNIQUE: Multiplanar multisequence MRI of the lumbar spine was performed without contrast. FINDINGS: Lumbar spine alignment is within normal limits. Vertebral bodies have normal height. Normal conus ter minus near the level of T12. T12-L1: The disc is desiccated and has mild loss of height. No foraminal or spinal stenosis. L1-L2: The disc is desiccated and has mild loss of height. There is a large anterior protrusion but only mil d bulging posteriorly. There is mild patchy, reactive appearing endplate marrow edema. No significant foraminal or spinal stenosis. L2-L3: The disc is desiccated and has mild loss of height. There is diffuse bulging of the disc annulus and mild to moderate bilateral facet osteoarthritis. Mild bilateral foraminal stenosis. Mild endplate mar row edema. L3-L4: The disc is desiccated and has mild to moderate loss of height. There is a small, broad/diffuse disc protrusion and mild bilateral facet osteoarthritis. There is mild bilateral foraminal stenosis. Mild endplate marrow edema. L4-L5: The disc is desiccated and has mild to moderate loss of height. There is diffuse bulging of the disc annulus and moderate bilateral facet osteoarthritis. There is mild to moderate bilateral foraminal st enosis. Mild endplate marrow edema. L5-S1: The disc is desiccated and has moderate loss of height with vacuum phenomena. There is a small, relat ively broad but especially right paracentral/foraminal disc protrusion and moderate bilateral facet o steoarthritis. There is mild lateral recess narrowing, mostly on the right, and the transiting right S1 nerve root appears mildly swollen relative to the left. There is moderate bilateral foraminal sten osis. Mild endplate marrow edema. CONCLUSION: 1. Multilevel lumbar spine degenerative changes as above. 2. Mild spinal stenosis at L5/S1, mostly the right lateral recess. Possible impingement on the transi ting right S1 nerve root. 3. Moderate bilateral foraminal stenosis at L5/S1 and mild to moderate bilateral foraminal stenosis a t L4/L5. Generally mild degrees of foraminal encroachment at other levels. 4. There is patchy, reactive appearing marrow edema at essentially all levels. Fernando Donald MD on October 10, 2017 at 22:42 Board Certified Radiologist. This report was verified electronically.
[2017-10-11] VITALS (10 sets, daily range): BP systolic 112–169; BP diastolic 63–89; PULSE 84–106; RESP 17–20; TEMP 98–98.5; O2SAT 93–96
[2017-10-11] MEDS: MORPHINE SULFATE 4 MG/ML INJ IV PUSH PRN ×5 (00:27→18:14)
[2017-10-11] MEDS: HEPARIN SODIUM - SQ 10,000 UNITS/ML VIAL SQ SCH ×3 (06:26→22:00)
[2017-10-11] MEDS: INSULIN ASPART SUPPLEMENTAL SCALE SQ SCH ×4 (08:00→21:00)
[2017-10-11] MEDS: DOCUSATE SODIUM 50 MG/SENNA 8.6 MG TAB PO SCH ×2 (09:30→21:00)
[2017-10-11] MEDS: busPIRone HCL 10 MG TAB PO SCH ×2 (09:30→21:00)
[2017-10-11] MEDS: DOXAZOSIN MESYLATE 4 MG TAB PO SCH ×2 (09:30→21:00)
[2017-10-11] MEDS: SODIUM CHLORIDE 0.9% FLUSH 10 ML FLUSH IV FLUSH SCH ×2 (09:31→21:00)
[2017-10-11 11:36] LABS: HEMATOCRIT 35.6 % (39.0-51.0); MEAN CELL VOLUME 84.7 FL (80.0-100.0); MEAN CORPUSCULAR HEMOGLOBIN 28.6 PG (27.0-34.0); MEAN CORPUSCULAR HGB CONC 33.8 % (32.0-36.0); MEAN PLATELET VOLUME 7.2 FL (7.0-11.0); PLATELET COUNT 295 TH/MM3 (150-450); RED CELL DISTRIBUTION WIDTH 14.3 % (11.6-17.2); WHITE BLOOD COUNT 9.8 TH/MM3 (4.0-11.0)
[2017-10-11 11:48] LABS: CALCIUM 9.3 MG/DL (8.5-10.1); CREATININE 1.79 MG/DL (0.60-1.30)
--- NOTE | 2017-10-11 18:54 | PD.CONS ---
History of Present Illness Service Neurosurgery Consult Requested By Medicine service Reason for Consult Lumbar disc displacement, low back and leg pain Primary Care Physician Unknown Diagnoses: History of Present Illness 81-year-old male complains of intermittent right low back and lower extremity pain for many years. She states that he underwent approximately 20 epidural steroid injections a few years ago for a flareup of severe right lower extremity pain. He was seen by neurology at that time and no surgical intervention recommended. He has also been seen by neurosurgery and [facility] previously, also without any recommendation for surgery. He states that on 09/30/2017 he awoke with severe left low back and proximal greater than distal lower extremity pain. This apparently lasted for a few days, and then the pain rather abruptly changed over to the right side with subsequent severe right low back and gluteal and posterior lower extremity pain. He has no complaining of definite weakness in the lower extremities. He has a little numbness or paresthesia in the right posterior lateral thigh and calf. He describes the right lower extremity pain as a burning or stinging type pain. His skin is very sensitive to touch. He has occasional spasms in the right greater than left leg. He states he recently had a lower extremity flow study done as an outpatient. Review of Systems Constitutional: COMPLAINS OF: Fatigue, DENIES: Fever, Weight gain Eyes: DENIES: Blurred vision Ears, nose, mouth, throat: DENIES: Hearing loss Respiratory: DENIES: Shortness of breath Cardiovascular: DENIES: Chest pain, Palpitations Gastrointestinal: DENIES: Abdominal pain, Nausea Genitourinary: DENIES: Urinary incontinence Musculoskeletal: COMPLAINS OF: Muscle aches, Back pain, DENIES: Neck pain Hematologic/lymphatic: DENIES: Bruising Neurologic: COMPLAINS OF: Abnormal gait, DENIES: Headache Past Family Social History Allergies: Coded Allergies: No Known Allergies (Unverified Allergy, Unknown, 10/09/17) Past Medical History Bladder cancer Hypertension Diabetes dyslipidemia Peripheral neuropathy Past Surgical History Achilles tendon repair Reported Medications Reported Meds & Active Scripts Active Reported Hydrochlorothiazide 50 Mg Tab 50 Mg PO DAILY Lisinopril 20 Mg Tab Unknown Dose PO DAILY Simvastatin 40 Mg Tab 40 Mg PO HS Doxazosin (Doxazosin Mesylate) 4 Mg Tab 4 Mg PO BID Gabapentin 300 Mg Cap 300 Mg PO BID Buspirone (Buspirone HCl) 10 Mg Tab 10 Mg PO BID Family History Cardiac disease in his mother Social History Does not smoke cigarettes Infrequent alcohol Physical Exam Vital Signs Vital Signs Date Time Temp Pulse Resp B/P (MAP) Pulse Ox O2 Delivery O2 Flow Rate FiO2 10/11/17 16:00 98.1 87 19 165/72 (103) 94 10/11/17 12:00 84 10/11/17 12:00 98.3 88 19 167/72 (103) 94 10/11/17 08:00 98.5 90 20 137/89 (105) 94 10/11/17 04:09 87 10/11/17 03:26 98.4 95 18 143/63 (89) 94 10/11/17 01:16 86 10/11/17 00:48 98.0 85 18 112/82 (92) 96 10/10/17 20:42 98.4 94 18 143/66 (91) 94 Physical Exam GENERAL: This is a well-nourished, well-developed patient, appears quite uncomfortable with lower extremity motor examination SKIN: No rashes, ecchymoses or lesions. Cool and dry. HEAD: Atraumatic. Normocephalic. No temporal or scalp tenderness. EYES: Sclerae are clear and nonicteric ENT: No cervical lymphadenopathy NECK: Nontender, normal range of motion CARDIOVASCULAR: Pulse regular RESPIRATORY: Regular nonlabored GASTROINTESTINAL: Abdomen soft, non-tender, nondistended. No hepato-splenomegaly , or palpable masses. No guarding. MUSCULOSKELETAL: Moderate right lower extremity diffuse edema NEUROLOGICAL: Awake and alert Conversant and appropriate Speech clear No evidence anxiety or depression Reasonable judgment and insight Extraocular movements intact Facial motor movements symmetric Sensation intact light touch upper extremities Sensation mildly diminished distal lower extremities with complaint of paresthesias right greater than left calf and foot. Positive dysesthesia to light touch over the posterior lateral right thigh and calf greater than foot. Positive muscular tenderness over the right calf and foot greater than thigh. Malcolm's response absent bilateral No ankle clonus Plantar responses are neutral Positive fasciculations with occasional spasm right thigh and calf. Laboratory Laboratory Tests Test 10/11/17 10:39 10/11/17 10:59 White Blood Count 9.8 Red Blood Count 4.20 Hemoglobin 12.0 Hematocrit 35.6 Mean Corpuscular Volume 84.7 Mean Corpuscular Hemoglobin 28.6 Mean Corpuscular Hemoglobin Concent 33.8 Red Cell Distribution Width 14.3 Platelet Count 295 Mean Platelet Volume 7.2 Blood Urea Nitrogen 33 Creatinine 1.79 Random Glucose 116 Calcium Level 9.3 Sodium Level 137 Potassium Level 3.7 Chloride Level 100 Carbon Dioxide Level 27.0 Anion Gap 10 Estimat Glomerular Filtration Rate 37 Result Diagram: 10/11/17 1039 10/11/17 1059 Assessment and Plan Assessment and Plan Impression: 1. Severe recent left followed by right lower extremity radicular pain, primarily S1 distribution. He does have significant tenderness to muscular palpation throughout the posterior right lower extremity as well as significant hyperesthesia to light touch in the posterior lateral right thigh and calf. 2. Very small focal annular tear with slight disc and annular displacement at the right L5-S1 level which abuts the right S1 nerve root without significant nerve compression or displacement. Mild right lateral recess stenosis. There may be very focal nerve impingement at the level of the right L4-5 medial facet. Mild bilateral L5-S1 foraminal stenosis. It is doubtful that this is severe enough to cause his present symptoms. 3. 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 He has quite a bit of dysesthetic pain in the right leg and has relatively frequent, intermittent lower extremity spasm. No definite long tract findings but may be obscured by underlying neuropathy. Recommendations: Discussed at length with the patient and his . Proceed with MRI thoracic spine. Continue to mobilize out of bed as tolerated, physical therapy. Continue gabapentin. Jordan López MD Oct 11, 2017 18:54
[2017-10-11] MEDS: PRAVASTATIN SOD 80 MG TAB PO SCH (21:00)
--- NOTE | 2017-10-11 23:32 | HHI.PR ---
Subjective Remarks Patient seen this morning. Denies any dysuria.. Patient says he came to the hospital due to bilateral lower extremity weakness, not for any other reason. His weakness has continued, and he is unable to walk. Physical therapy recommends rehabilitation. Objective Vital Signs Date Time Temp Pulse Resp B/P (MAP) Pulse Ox O2 Delivery O2 Flow Rate FiO2 10/11/17 23:11 98.5 106 18 159/77 (104) 93 10/11/17 20:22 98.5 101 17 169/72 (104) 96 10/11/17 18:42 93 10/11/17 16:00 98.1 87 19 165/72 (103) 94 10/11/17 12:00 84 10/11/17 12:00 98.3 88 19 167/72 (103) 94 10/11/17 08:00 98.5 90 20 137/89 (105) 94 10/11/17 04:09 87 10/11/17 03:26 98.4 95 18 143/63 (89) 94 10/11/17 01:16 86 10/11/17 00:48 98.0 85 18 112/82 (92) 96 I/O 10/11/17 10/11/17 10/11/17 10/12/17 10/12/17 10/12/17 07:00 15:00 23:00 07:00 15:00 23:00 Intake Total 480 ml Output Total 1550 ml Balance -1070 ml Intake Oral 480 ml Output Urine Total 1550 ml Result Diagram: 10/11/17 1039 10/11/17 1059 Objective Remarks GENERAL: . patient sitting up in bed. Appears uncomfortable.alert and oriented 4. SKIN: Warm and dry. HEAD: Normocephalic. EYES: No scleral icterus. No injection or drainage. NECK: Supple, trachea midline. No JVD. CARDIOVASCULAR: Regular rate and rhythm without murmurs, gallops, or rubs. RESPIRATORY: Breath sounds equal bilaterally. No accessory muscle use. GASTROINTESTINAL: Abdomen soft, non-tender, nondistended. MUSCULOSKELETAL: No cyanosis, or edema. BACK: Nontender without obvious deformity. No CVA tenderness. A/P Assessment and Plan //Left-sided back/flank pain Unclear etiology Patient with history of bladder cancer [address] of the abdomen/pelvis shows left-sided double-J stent in good position with persistent moderate hydroureteronephrosis on the left Urology consulted, appreciate recommendations. Patient is known to Dr. Mckeon UA negative for urinary tract infection May be neuro/musculoskeletal in origin; MRI of the lumbar spine pending Morphine for pain Consult urology //Bilateral lower extremity weakness. //Lumbar spinal stenosis -Consult neurosurgery. Patient reports this is the reason for admission. PT is following and recommends rehabilitation. Appreciate assistance. //Urinary retention. Chavez placed. -Continue Cardura. //Diabetes mellitus Holding home oral anti-hyperglycemics Sliding scale insulin Monitor blood glucose = Glucose controlled //Hypertension/hyperlipidemia/neuropathy Continue home medications once reconciled Clonidine when necessary //Chronic kidney disease Creatinine 1.83, was 2.19 in 2016 Monitor renal function -This is stable around recent baseline FEN Heart healthy, diabetic diet Electrolytes: Monitor and replete when necessary Heparin Discharge Planning pending neurosurgery clearance PT following. Matthisa Adrian MD Oct 11, 2017 23:32
[2017-10-12 03:54] VITALS: BP 177/71; PULSE 100; RESP 17; TEMP 98; O2SAT 92
[2017-10-12] MEDS: MORPHINE SULFATE 4 MG/ML INJ IV PUSH PRN ×3 (04:46→22:58)
[2017-10-12 07:35] VITALS: PULSE 92
[2017-10-12] MEDS: INSULIN ASPART SUPPLEMENTAL SCALE SQ SCH ×4 (08:00→21:00)
[2017-10-12] MEDS: HEPARIN SODIUM - SQ 10,000 UNITS/ML VIAL SQ SCH ×2 (08:09→18:02)
--- NOTE | 2017-10-12 08:16 | RADRPT ---
EXAM DATE/TIME: 10/12/2017 07:36 [facility] COMPARISON: MRI LUMBAR SPINE W/O CONTRAST, October 10, 2017, 19:46. INDICATIONS : Myelopathy. MEDICAL HISTORY : Hypertension. Carcinoma, bladder. Diabetes mellitus type 2. SURGICAL HISTORY : Bilateral achilles tendon repair, Ureteral stent. ENCOUNTER: Initial ACUITY: 1 day PAIN SCORE: 6/10 LOCATION: [facility] TECHNIQUE: Multiplanar multisequence MRI of the thoracic spine was performed. FINDINGS: VERTEBRA: Normal vertebral body height. Homogeneous marrow signal. ALIGNMENT: Normal. CORD: There is an extra dural mass identified within the posterior thecal sac at the level of C5-C6 which a ppears to cause anterior displacement of the cord and mild effacement of the cord. The mass is oval i n shape measuring 1.6 cm craniocaudally by 0.5 x 0.5 cm anterior posterior and transversely. The lj cent compressed cord demonstrates normal signal. T1-T2: Normal. T2-T3: The thecal sac has a normal diameter. No evidence of disc bulge or protrusion. T3-T4: The thecal sac has a normal diameter. No evidence of disc bulge or protrusion. T4-T5: The thecal sac has a normal diameter. No evidence of disc bulge or protrusion. T5-T6: The thecal sac has a normal diameter. No evidence of disc bulge or protrusion. T6-T7: The thecal sac has a normal diameter. No evidence of disc bulge or protrusion. T7-T8: The thecal sac has a normal diameter. No evidence of disc bulge or protrusion. T8-T9: The thecal sac has a normal diameter. No evidence of disc bulge or protrusion. T9-T10: There is posterior prominence of the ligamentum flavum adjacent to the left facet joint which causes mild mass effect upon the thecal sac and appears to narrow the left neural foramina. Sagittal views d emonstrate no significant neuroforaminal narrowing. T10-T11: The thecal sac has a normal diameter. No evidence of disc bulge or protrusion. T11-T12: The thecal sac has a normal diameter. No evidence of disc bulge or protrusion. T12-L1: The thecal sac has a normal diameter. No evidence of disc bulge or protrusion. CONCLUSION: Oval extra dural mass identified along the posterior thecal sac at the level of C5/C6. In the prior h istory of malignancy this could represent a site of metastatic disease. Recommend further evaluation of the thoracic spine with contrast.. Dinah Lira MD on October 12, 2017 at 8:07 Board Certified Radiologist. This report was verified electronically.
[2017-10-12] MEDS: DOCUSATE SODIUM 50 MG/SENNA 8.6 MG TAB PO SCH ×2 (09:00→21:00)
[2017-10-12] MEDS: SODIUM CHLORIDE 0.9% FLUSH 10 ML FLUSH IV FLUSH SCH ×2 (09:00→22:58)
[2017-10-12] MEDS: DOXAZOSIN MESYLATE 4 MG TAB PO SCH ×2 (09:33→22:53)
[2017-10-12] MEDS: busPIRone HCL 10 MG TAB PO SCH ×2 (09:33→22:52)
[2017-10-12 13:23] VITALS: BP 161/70; PULSE 103; RESP 14; TEMP 98; O2SAT 95
[2017-10-12 16:23] VITALS: BP 171/74; PULSE 101; RESP 18; TEMP 98; O2SAT 95
--- NOTE | 2017-10-12 16:41 | HHI.NSPN ---
History Chief Complaint: low back pain with radiation to the right lower extremity Interval History No significant change in symptoms over the past day. Exam Results Vital Signs Date Time Temp Pulse Resp B/P (MAP) Pulse Ox O2 Delivery O2 Flow Rate FiO2 10/12/17 16:23 98.0 101 18 171/74 (106) 95 10/09/17 18:27 Room Air Intake and Output 10/12/17 10/12/17 10/13/17 08:00 16:00 00:00 Intake Total 300 ml Output Total 1300 ml Balance -1000 ml Physical Examination Mild right mid to lateral lower lumbar tenderness. Mild right lateral hip and gluteal tenderness. Significant dysesthesia and some allodynia over the right thigh and calf. No ankle clonus Strength is within normal limits range of flexion-extension groups in the lower extremities with some guarding in the right leg with testing. Lab, Micro, Other Results 10/12/17 thoracic spine MRI results reviewed. Thoracic Spine MRI 10/12/17 0000 Signed Impressions: Service Date/Time: Thursday, October 12, 2017 07:36 - CONCLUSION: Oval extra dural mass identified along the posterior thecal sac at the level of C5/C6. In the prior history of malignancy this could represent a site of metastatic disease. Recommend further evaluation of the thoracic spine with contrast.. Dinah Lira MD Medical Decision Making Impression and Plan Impression: 1. Acute exacerbation of chronic low back pain with intermittent radiculopathy. Now with primarily right L5-S1 radicular symptoms without significant focal deficit on examination. 2. Focal right L5-S1 paracentral disc herniation-annular tear with minimal impingement right S1 nerve root. Mild right L4-5 lateral recess stenosis with possible mild L5 impingement. He has evidence of at least mild bilateral L5-S1 foraminal stenosis on MRI sagittal T1 images but does not appear very significant on the axial views. 3. 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 There appears to be some thinning of the spinal cord on the MRI. Possible neoplastic process. Plan: Discussed with patient. Plan to proceed with MRI thoracic spine with contrast to better determine the nature of the thoracic lesion. Considering his exam findings and initial MRI findings, it is likely that he will need to proceed with surgical intervention for cord decompression. Continuing conservative treatment in regards to the lower lumbar radicular pain symptoms. It is questionable whether some of the symptoms are actually myelopathic in origin, particularly based on his exam findings. Jordan López MD Oct 12, 2017 16:41
[2017-10-12] MEDS ORDERED: GADOBENATE DIM PF 529 MG/ML 20ML VIAL (for RAD MRI) IV ONE (18:30)
--- NOTE | 2017-10-12 19:08 | RADRPT ---
EXAM DATE/TIME: 10/12/2017 18:18 [facility] COMPARISON: No previous studies available for comparison. INDICATIONS : Mass. CONTRAST: 20 cc Multihance (gadobenate) IV MEDICAL HISTORY : Diabetes mellitus type 2. Hypertension. Hypercholesterolemia. Carcinoma bladder. SURGICAL HISTORY : Bilateral achhilles repair. ENCOUNTER: Initial ACUITY: 2 day PAIN SCORE: 4/10 LOCATION: [facility] TECHNIQUE: Multiplanar multisequence MRI of the thoracic spine was performed. FINDINGS: Postcontrast images no abnormal enhancing extradural lesions within the thoracic spinal canal. Mild t horacic scoliosis. Moderate degenerative disc disease. No foraminal stenosis. Mild to moderate degene rative disc disease. CONCLUSION: 1. No extradural mass identified on postcontrast images. Moderate degenerative changes in the thoraci c spine. No cord compression. Nick Quinteros MD on October 12, 2017 at 19:00 Board Certified Radiologist. This report was verified electronically.
--- NOTE | 2017-10-12 20:12 | HHI.PR ---
Subjective Remarks Patient seen this afternoon. Reports continued bilateral lower extremity pain. Denies any chest pain or shortness of breath. Reports constipation. Denies abdominal pain Objective Vital Signs Date Time Temp Pulse Resp B/P (MAP) Pulse Ox O2 Delivery O2 Flow Rate FiO2 10/12/17 18:09 22 10/12/17 16:23 98.0 101 18 171/74 (106) 95 10/12/17 13:23 98.0 103 14 161/70 (100) 95 10/12/17 07:35 92 10/12/17 03:54 98.0 100 17 177/71 (106) 92 10/11/17 23:11 98.5 106 18 159/77 (104) 93 10/11/17 20:22 98.5 101 17 169/72 (104) 96 I/O 10/11/17 10/11/17 10/11/17 10/12/17 10/12/17 10/12/17 06:59 14:59 22:59 06:59 14:59 22:59 Intake Total 480 ml 300 ml Output Total 1550 ml 1300 ml 750 ml Balance -1070 ml -1000 ml -750 ml Intake Oral 480 ml 300 ml Output Urine Total 1550 ml 1300 ml 750 ml # Voids 1 Result Diagram: 10/11/17 1039 10/11/17 1059 Objective Remarks GENERAL: . patient sitting up in bed. Appears uncomfortable.alert and oriented 4. unchanged SKIN: Warm and dry. HEAD: Normocephalic. EYES: No scleral icterus. No injection or drainage. NECK: Supple, trachea midline. No JVD. CARDIOVASCULAR: Regular rate and rhythm without murmurs, gallops, or rubs. RESPIRATORY: Breath sounds equal bilaterally. No accessory muscle use. GASTROINTESTINAL: Abdomen soft, non-tender, nondistended. MUSCULOSKELETAL: No cyanosis, or edema. BACK: Nontender without obvious deformity. No CVA tenderness. A/P Assessment and Plan =========10/12/17========= Constipation. Laxatives ordered Thoracic lesion. Further imaging as per neurosurgery. Appreciate assistance. Continue PT. //Left-sided back/flank pain Unclear etiology Patient with history of bladder cancer [address] of the abdomen/pelvis shows left-sided double-J stent in good position with persistent moderate hydroureteronephrosis on the left Urology consulted, appreciate recommendations. Patient is known to Dr. Mckeon UA negative for urinary tract infection May be neuro/musculoskeletal in origin; MRI of the lumbar spine pending Morphine for pain Consult urology //Bilateral lower extremity weakness. //Lumbar spinal stenosis -Consult neurosurgery. Patient reports this is the reason for admission. PT is following and recommends rehabilitation. Appreciate assistance. //Urinary retention. Chavez placed. -Continue Cardura. //Diabetes mellitus Holding home oral anti-hyperglycemics Sliding scale insulin Monitor blood glucose = Glucose controlled //Hypertension/hyperlipidemia/neuropathy Continue home medications once reconciled Clonidine when necessary //Chronic kidney disease Creatinine 1.83, was 2.19 in 2016 Monitor renal function -This is stable around recent baseline FEN Heart healthy, diabetic diet Electrolytes: Monitor and replete when necessary Heparin Discharge Planning pending neurosurgery clearance PT following. Matthias Adrian MD Oct 12, 2017 20:11
[2017-10-12] MEDS ORDERED: BISACODYL 10 MG SUPP RECTAL ONE (20:15)
[2017-10-12] MEDS ORDERED: DOCUSATE SODIUM 50 MG/SENNA 8.6 MG TAB PO ONE (20:15)
[2017-10-12] MEDS ORDERED: MAGNESIUM HYDROXIDE SUSP 30 ML CUP PO ONE (20:15)
[2017-10-12 21:03] VITALS: BP 144/68; PULSE 96; RESP 18; TEMP 99.2; O2SAT 95
[2017-10-12] MEDS: PRAVASTATIN SOD 80 MG TAB PO SCH (22:53)
[2017-10-13] MEDS: DOCUSATE SODIUM 50 MG/SENNA 8.6 MG TAB PO SCH ×5 (03:09→21:52)
[2017-10-13] MEDS: HEPARIN SODIUM - SQ 10,000 UNITS/ML VIAL SQ SCH ×4 (03:10→21:52)
[2017-10-13] MEDS: MORPHINE SULFATE 4 MG/ML INJ IV PUSH PRN ×3 (03:21→21:53)
[2017-10-13 04:34] VITALS: BP 161/71; PULSE 95; RESP 18; TEMP 97.5; O2SAT 94
[2017-10-13] MEDS: SODIUM CHLOR 0.9% 1000 ML INJ 1,000 ML IV SCH ×2 (07:26→23:20)
[2017-10-13 08:12] VITALS: BP 178/79; PULSE 93; RESP 20; TEMP 97.6; O2SAT 95
[2017-10-13] MEDS: INSULIN ASPART SUPPLEMENTAL SCALE SQ SCH ×4 (08:30→21:00)
--- NOTE | 2017-10-13 10:54 | RADRPT ---
EXAM DATE/TIME: 10/13/2017 09:56 [facility] COMPARISON: CT ABDOMEN & PELVIS W/O CONTRAST, October 09, 2017, 13:32. INDICATIONS : Constipation and abdominal pain. MEDICAL HISTORY : Carcinoma, bladder. Renal calculi. SURGICAL HISTORY : Left stent placement. ENCOUNTER: Initial ACUITY: 4 - 6 days PAIN SCORE: 10/10 LOCATION: Bilateral Abdomen FINDINGS: Supine view of the abdomen was performed. There is a left double-J ureteral stent in place. Nonspecif ic pattern of nondistended air-filled small bowel in the right lower quadrant. Air and stool seen thr oughout the colon. No gross free air or pneumatosis. Remainder of the exam is unchanged. CONCLUSION: 1. Nonspecific grouping of nondistended air-filled small bowel in the right lower quadrant. 2. Otherwise, nonobstructive bowel gas pattern. 3. Double-J left ureteral stent in place. Gonzalo Love MD on October 13, 2017 at 10:49 Board Certified Radiologist. This report was verified electronically.
[2017-10-13 11:30] VITALS: BP 189/77; PULSE 94; RESP 16; TEMP 98; O2SAT 95
[2017-10-13] MEDS: busPIRone HCL 10 MG TAB PO SCH ×2 (11:37→21:52)
[2017-10-13] MEDS: DOXAZOSIN MESYLATE 4 MG TAB PO SCH ×2 (11:37→21:52)
[2017-10-13] MEDS: SODIUM CHLORIDE 0.9% FLUSH 10 ML FLUSH IV FLUSH SCH ×2 (12:04→21:00)
[2017-10-13 15:29] VITALS: BP 191/80; PULSE 99; RESP 24; TEMP 98.1; O2SAT 98
--- NOTE | 2017-10-13 18:52 | HHI.PR ---
Subjective Remarks Patient seen this morning. States that constipation is resolved. Denies any chest pain or shortness of breath. Reports bilateral lower extremity weakness improved slightly. Still does not feel like able to go home. Objective Vital Signs Date Time Temp Pulse Resp B/P (MAP) Pulse Ox O2 Delivery O2 Flow Rate FiO2 10/13/17 15:29 98.1 99 24 191/80 (117) 98 10/13/17 11:30 98.0 94 16 189/77 (114) 95 10/13/17 08:12 97.6 93 20 178/79 (112) 95 10/13/17 04:34 97.5 95 18 161/71 (101) 94 10/12/17 21:03 99.2 96 18 144/68 (93) 95 I/O 10/12/17 10/12/17 10/12/17 10/13/17 10/13/17 10/13/17 07:00 15:00 23:00 07:00 15:00 23:00 Intake Total 300 ml Output Total 1300 ml 750 ml Balance -1000 ml -750 ml Intake Oral 300 ml Output Urine Total 1300 ml 750 ml # Voids 1 Result Diagram: 10/11/17 1039 10/11/17 1059 Objective Remarks GENERAL: . patient sitting up in bed. Appears uncomfortable.alert and oriented 4. again unchanged SKIN: Warm and dry. HEAD: Normocephalic. EYES: No scleral icterus. No injection or drainage. NECK: Supple, trachea midline. No JVD. CARDIOVASCULAR: Regular rate and rhythm without murmurs, gallops, or rubs. RESPIRATORY: Breath sounds equal bilaterally. No accessory muscle use. GASTROINTESTINAL: Abdomen soft, non-tender, nondistended. MUSCULOSKELETAL: No cyanosis, or edema. BACK: Nontender without obvious deformity. No CVA tenderness. A/P Assessment and Plan =========10/13/17========= Constipation. Resolved after laxatives Thoracic lesion. Further imaging as per neurosurgery. Appreciate assistance. Continue PT. //Left-sided back/flank pain Unclear etiology Patient with history of bladder cancer [address] of the abdomen/pelvis shows left-sided double-J stent in good position with persistent moderate hydroureteronephrosis on the left Urology consulted, appreciate recommendations. Patient is known to Dr. Mckeon UA negative for urinary tract infection May be neuro/musculoskeletal in origin; MRI of the lumbar spine pending Morphine for pain Consult urology = Continues with Chavez in place. //Bilateral lower extremity weakness. //Lumbar spinal stenosis -Consult neurosurgery. Patient reports this is the reason for admission. PT is following and recommends rehabilitation. Appreciate assistance. = Neurosurgery following. Appreciate neurosurgery assistance. //Urinary retention. Chavez placed. -Continue Cardura. Continue Chavez. Follow-up with Dr. Mckeon as outpatient //Diabetes mellitus Holding home oral anti-hyperglycemics Sliding scale insulin Monitor blood glucose = Glucose controlled //Hypertension/hyperlipidemia/neuropathy Continue home medications once reconciled Clonidine when necessary = 10/13. Accelerated hypertension. Systolic blood pressures 190s Nifedipine added. //Chronic kidney disease Creatinine 1.83, was 2.19 in 2016 Monitor renal function -This is stable around recent baseline FEN Heart healthy, diabetic diet Electrolytes: Monitor and replete when necessary Heparin Discharge Planning pending neurosurgery clearance PT following. [id number] signed Matthias Adrian MD Oct 13, 2017 18:52
[2017-10-13] MEDS ORDERED: TAMSULOSIN HCL 0.4 MG CAP PO ONE (19:00)
[2017-10-13] MEDS ORDERED: NIFEdipine 30 MG SUSTAINED RELEASE TAB PO ONE (19:30)
[2017-10-13 20:11] VITALS: BP 176/73; PULSE 103; RESP 18; TEMP 99.7; O2SAT 95
[2017-10-13] MEDS: PRAVASTATIN SOD 80 MG TAB PO SCH (21:52)
[2017-10-13 22:01] VITALS: BP 166/75; PULSE 103
[2017-10-14 00:53] VITALS: BP 158/69; PULSE 69
[2017-10-14] MEDS: MORPHINE SULFATE 4 MG/ML INJ IV PUSH PRN ×2 (03:26→12:34)
[2017-10-14] MEDS: HEPARIN SODIUM - SQ 10,000 UNITS/ML VIAL SQ SCH (05:49)
[2017-10-14 06:21] VITALS: BP 150/66; PULSE 89; RESP 18; TEMP 98.8; O2SAT 92
[2017-10-14] MEDS: INSULIN ASPART SUPPLEMENTAL SCALE SQ SCH ×2 (08:00→12:00)
[2017-10-14 08:12] LABS: ALBUMIN 2.6 GM/DL (3.4-5.0); BICARBONATE 24.8 MEQ/L (21.0-32.0); CALCIUM 9.1 MG/DL (8.5-10.1); CREATININE 1.38 MG/DL (0.60-1.30); MAGNESIUM 2.5 MG/DL (1.5-2.5); PHOSPHORUS 3.4 MG/DL (2.5-4.9)
[2017-10-14 08:42] VITALS: BP 136/74; PULSE 93; RESP 16; TEMP 98.9; O2SAT 96
[2017-10-14] MEDS ORDERED: TAMSULOSIN HCL 0.4 MG CAP PO SCH (09:00)
[2017-10-14] MEDS ORDERED: NIFEdipine 30 MG SUSTAINED RELEASE TAB PO SCH (09:00)
[2017-10-14] MEDS: DOXAZOSIN MESYLATE 4 MG TAB PO SCH (09:41)
[2017-10-14] MEDS: DOCUSATE SODIUM 50 MG/SENNA 8.6 MG TAB PO SCH ×2 (09:41)
[2017-10-14] MEDS: busPIRone HCL 10 MG TAB PO SCH (09:41)
[2017-10-14] MEDS: SODIUM CHLORIDE 0.9% FLUSH 10 ML FLUSH IV FLUSH SCH (09:45)
--- NOTE | 2017-10-14 10:00 | HHI.PR ---
Subjective Remarks Patient still feels very weak. Especially in bilateral lower extremities. MRI showed a mass in C5-C6 area Await neurosurgical reevaluation this may hold up discharge to SNF Neurosurgery has cleared the patient and can be discharged to SNF today Objective Vitals Vital Signs Date Time Temp Pulse Resp B/P (MAP) Pulse Ox O2 Delivery O2 Flow Rate FiO2 10/14/17 08:42 98.9 93 16 136/74 (94) 96 10/14/17 06:21 98.8 89 18 150/66 (94) 92 10/14/17 00:53 69 158/69 (98) 10/13/17 22:01 103 166/75 (105) 10/13/17 20:11 99.7 103 18 176/73 (107) 95 10/13/17 15:29 98.1 99 24 191/80 (117) 98 10/13/17 11:30 98.0 94 16 189/77 (114) 95 I/O 10/13/17 10/13/17 10/13/17 10/14/17 10/14/17 10/14/17 07:00 15:00 23:00 07:00 15:00 23:00 Intake Total 720 ml Output Total 1000 ml 350 ml 300 ml Balance -280 ml -350 ml -300 ml Intake Oral 720 ml Output Urine Total 1000 ml 350 ml 300 ml # Voids 1 # Bowel Movements 1 Result Diagram: 10/11/17 1039 10/14/17 0627 Other Results Laboratory Tests Test 10/11/17 10:39 10/11/17 10:59 10/14/17 06:27 White Blood Count 9.8 TH/MM3 Red Blood Count 4.20 MIL/MM3 Hemoglobin 12.0 GM/DL Hematocrit 35.6 % Mean Corpuscular Volume 84.7 FL Mean Corpuscular Hemoglobin 28.6 PG Mean Corpuscular Hemoglobin Concent 33.8 % Red Cell Distribution Width 14.3 % Platelet Count 295 TH/MM3 Mean Platelet Volume 7.2 FL Blood Urea Nitrogen 33 MG/DL 33 MG/DL Creatinine 1.79 MG/DL 1.38 MG/DL Random Glucose 116 MG/DL 110 MG/DL Calcium Level 9.3 MG/DL 9.1 MG/DL Sodium Level 137 MEQ/L 138 MEQ/L Potassium Level 3.7 MEQ/L 3.4 MEQ/L Chloride Level 100 MEQ/L 102 MEQ/L Carbon Dioxide Level 27.0 MEQ/L 24.8 MEQ/L Anion Gap 10 MEQ/L 11 MEQ/L Estimat Glomerular Filtration Rate 37 ML/MIN 50 ML/MIN Albumin 2.6 GM/DL Phosphorus Level 3.4 MG/DL Magnesium Level 2.5 MG/DL Imaging Last Impressions Abdomen X-Ray 10/13/17 0000 Signed Impressions: Service Date/Time: Friday, October 13, 2017 09:56 - CONCLUSION: 1. Nonspecific grouping of nondistended air-filled small bowel in the right lower quadrant. 2. Otherwise, nonobstructive bowel gas pattern. 3. Double-J left ureteral stent in place. Gonzalo Love MD Thoracic Spine MRI 10/12/17 0000 Signed Impressions: Service Date/Time: Thursday, October 12, 2017 07:36 - CONCLUSION: Oval extra dural mass identified along the posterior thecal sac at the level of C5/C6. In the prior history of malignancy this could represent a site of metastatic disease. Recommend further evaluation of the thoracic spine with contrast.. Dinah Lira MD Lumbar Spine MRI 10/10/17 0000 Signed Impressions: Service Date/Time: Tuesday, October 10, 2017 19:46 - CONCLUSION: 1. Multilevel lumbar spine degenerative changes as above. 2. Mild spinal stenosis at L5/S1, mostly the right lateral recess. Possible impingement on the transiting right S1 nerve root. 3. Moderate bilateral foraminal stenosis at L5/S1 and mild to moderate bilateral foraminal stenosis at L4/L5. Generally mild degrees of foraminal encroachment at other levels. 4. There is patchy, reactive appearing marrow edema at essentially all levels. Fernando Donald MD Abdomen/Pelvis CT 10/09/17 0000 Signed Impressions: Service Date/Time: September 13:32 - CONCLUSION: 1. Left- sided double-J ureteral stent in good position with persistent moderate hydroureteronephrosis on the left. 2. No right-sided calculi or obstructive uropathy. 3. Numerous layering gallstones in the gallbladder. 4. Mild constipation. Nick Quinteros MD Objective Remarks GENERAL: Awake alert and oriented 3 talkative and cooperative appears to be in some mild to moderate pain SKIN: Warm and dry. HEAD: Atraumatic. Normocephalic. EYES: Pupils equal and round. No scleral icterus. No injection or drainage. Extraocular muscles intact ENT: No nasal bleeding or discharge. Mucous membranes pink and moist. Tongue is midline NECK: Trachea midline. No JVD. Supple CARDIOVASCULAR: Regular rate and rhythm. S1-S2 no S3 or S4 RESPIRATORY: No accessory muscle use. Clear to auscultation. Breath sounds equal bilaterally. Obese- Chavez catheter in place GASTROINTESTINAL: Abdomen soft, non-tender, nondistended. Hepatic and splenic margins not palpable. MUSCULOSKELETAL: Extremities without clubbing, cyanosis, or edema. No obvious deformities. NEUROLOGICAL: Awake and alert. No obvious cranial nerve deficits. Motor grossly within normal limits. 4 out of 5 muscle strength in the arms and legs. Normal speech. PSYCHIATRIC: Appropriate mood and affect; insight and judgment normal. Procedures none Medications and IVs Current Medications Morphine Sulfate (Morphine Inj) 4 mg ONCE ONCE IV PUSH Last administered on at 13:00; Start 10/09/17 at 12:45; Stop 10/09/17 at 12:46; Status DC Morphine Sulfate (Morphine Inj) 4 mg ONCE ONCE IV PUSH Last administered on at 14:39; Start 10/09/17 at 14:30; Stop 10/09/17 at 14:31; Status DC Diazepam (Valium) 5 mg ONCE ONCE PO Last administered on 10/09/17 18:17; Start 10/09/17 at 18:15; Stop 10/09/17 at 18:16; Status DC Doxazosin Mesylate (Cardura) 4 mg BID PO Last administered on 10/14/17at 09:41; Start 10/09/17 at 21:00 Morphine Sulfate (Morphine Inj) 4 mg Q3H PRN IV PUSH pain 6-10 Last administered on 10/14/17at 03:26; Start 10/09/17 at 21:30 Sodium Chloride (NS Flush) 2 ml UNSCH PRN IV FLUSH FLUSH AFTER USING IV ACCESS ; Start 10/09/17 at 21:30 Sodium Chloride (NS Flush) 2 ml BID IV FLUSH Last administered on 10/13/17at 12: 04; Start 10/10/17 at 09:00 Acetaminophen (Tylenol) 650 mg Q4H PRN PO TEMP > 100.4; Start 10/09/17 at 21:30 Ondansetron HCl (Zofran Inj) 4 mg Q6H PRN IVP NAUSEA OR VOMITING Last administered on 10/09/17at 23:16; Start 10/09/17 at 21:30 Heparin Sodium (Porcine) (Heparin Inj) 5,000 units Q8H SQ Last administered on 10/14/17at 05:49; Start 10/09/17 at 22:00 Naloxone HCl (Narcan Inj) 0.4 mg UNSCH PRN IV PUSH SEE LABEL COMMENTS; Start at 21:30 Senna/Docusate Sodium (Christina-Colace) 1 tab BID PO Last administered on at 09:41; Start 10/10/17 at 09:00 Magnesium Hydroxide (Milk Of Magnesia Liq) 30 ml Q12H PRN PO Mild constipation Last administered on 10/10/17at 12:53; Start 10/09/17 at 21:30 Sennosides (Senokot) 17.2 mg Q12H PRN PO Moderate constipation; Start 10/09/17 at 21:30 Bisacodyl (Dulcolax Supp) 10 mg DAILY PRN RECTAL SEVERE CONSITIPATION/ IF NPO ; Start 10/09/17 at 21:30 Lactulose (Lactulose Liq) 30 ml DAILY PRN PO SEVERE CONSITIPATION/ IF PO; Start 10/09/17 at 21:30 Dextrose (D50w (Vial) Inj) 50 ml UNSCH PRN IV PUSH HYPOGLYCEMIA-SEE COMMENTS; Start 10/09/17 at 21:30 Glucagon (Glucagon Inj) 1 mg UNSCH PRN OTHER HYPOGLYCEMIA-SEE COMMENTS; Start 10/09/17 at 21:30 Insulin Aspart (NovoLOG SUPPLEMENTAL SCALE) 1 ACHS SLIDING SCALE SQ ; Start at 08:00 Clonidine (Catapres) 0.1 mg Q6H PRN PO SBP>160, DBP>90; Start 10/09/17 at 21:30 Buspirone HCl (Buspar) 10 mg BID PO Last administered on 10/14/17at 09:41; Start 10/10/17 at 21:00 Doxazosin Mesylate (Cardura) 4 mg BID PO ; Start 10/10/17 at 21:00; Status UNV Pravastatin Sodium (Pravachol) 80 mg HS PO Last administered on 10/13/17at 21:52 ; Start 10/10/17 at 21:00 Gadobenate Dimeglumine (Multihance Pf Inj) 20 ml STK-MED ONCE IV Last administered on 10/12/17at 18:30; Start 10/12/17 at 18:30; Stop 10/12/17 at 18:31 ; Status DC Senna/Docusate Sodium (Christina-Colace) 2 tab ONCE ONCE PO Last administered on at 22:52; Start 10/12/17 at 20:15; Stop 10/12/17 at 20:16; Status DC Magnesium Hydroxide (Milk Of Magnesia Liq) 30 ml ONCE ONCE PO Last administered on 10/13/17at 03:09; Start 10/12/17 at 20:15; Stop 10/12/17 at 20:16 ; Status DC Bisacodyl (Dulcolax Supp) 10 mg ONCE ONCE RECTAL Last administered on at 07:26; Start 10/12/17 at 20:15; Stop 10/12/17 at 20:16; Status DC Senna/Docusate Sodium (Christina-Colace) 1 tab BID PO ; Start 10/12/17 at 21:00 Sodium Chloride 1,000 ml @ 84 mls/hr [id number] IV Last administered on at 23:20; Start 10/12/17 at 20:15 Tamsulosin HCl (Flomax) 0.4 mg DAILY PO ; Start 10/14/17 at 09:00; Stop at 09:00; Status DC Tamsulosin HCl (Flomax) 0.4 mg ONCE ONCE PO ; Start 10/13/17 at 19:00; Stop at 19:00; Status DC Nifedipine (Procardia Xl) 30 mg ONCE ONCE PO Last administered on 10/13/17at 20 :21; Start 10/13/17 at 19:30; Stop 10/13/17 at 19:31; Status DC Nifedipine (Procardia Xl) 30 mg DAILY PO Last administered on 10/14/17at 09:41; Start 10/14/17 at 09:00 A/P Problem List: (1) Bladder cancer ICD Code: C67.9 - Malignant neoplasm of bladder, unspecified Status: Acute (2) Ureteral obstruction, left ICD Code: N13.5 - Crossing vessel and stricture of ureter without hydronephrosis Status: Acute Assessment and Plan Constipation. Resolved after laxatives Thoracic lesion. Further imaging as per neurosurgery. Appreciate assistance. Continue PT. c5 to c6 mass on mri-- will need evaluation by neurosurgery //Left-sided back/flank pain Unclear etiology Patient with history of bladder cancer [address] of the abdomen/pelvis shows left-sided double-J stent in good position with persistent moderate hydroureteronephrosis on the left Urology consulted, appreciate recommendations. Patient is known to Dr. Mckeon UA negative for urinary tract infection May be neuro/musculoskeletal in origin; MRI of the lumbar spine pending Morphine for pain Consult urology = Continues with Chavez in place. //Bilateral lower extremity weakness. //Lumbar spinal stenosis -Consult neurosurgery. Patient reports this is the reason for admission. PT is following and recommends rehabilitation. Appreciate assistance. = Neurosurgery following. Appreciate neurosurgery assistance. //Urinary retention. Chavez placed. -Continue Cardura. Continue Chavez. Follow-up with Dr. Mckeon as outpatient //Diabetes mellitus Holding home oral anti-hyperglycemics Sliding scale insulin Monitor blood glucose = Glucose controlled //Hypertension/hyperlipidemia/neuropathy Continue home medications once reconciled Clonidine when necessary = 10/13. Accelerated hypertension. Systolic blood pressures 190s Nifedipine added. //Chronic kidney disease Creatinine 1.83, was 2.19 in 2016 Monitor renal function -This is stable around recent baseline FEN Heart healthy, diabetic diet Electrolytes: Monitor and replete when necessary Heparin Discharge Planning pending neurosurgery clearance PT following. [id number] signed needs snf can dc to snf today for rehab will need follow up with neurosurgery Discharge Planning Has been cleared by neurosurgery and can be discharged to SNF today Levar Heath DO Oct 14, 2017 09:59
[2017-10-14] MEDS: SODIUM CHLOR 0.9% 1000 ML INJ 1,000 ML IV SCH (11:44)
[2017-10-14] MEDS ORDERED: PERI PO (12:39)
[2017-10-14] MEDS ORDERED: NIFE30TA8 PO (12:39)
[2017-10-14] MEDS ORDERED: PERC10TA27 PO (12:43)
[2017-10-14] MEDS ORDERED: ROBA500T PO (12:43)
--- NOTE | 2017-10-14 12:44 | HHI.DS ---
Discharge Summary Admission Date Oct 10, 2017 at 08:38 Discharge Date: Oct 14, 2017 Admitting Diagnosis Intractable pain (1) Bladder cancer ICD Code: C67.9 - Malignant neoplasm of bladder, unspecified Diagnosis: Secondary Status: Acute (2) Ureteral obstruction, left ICD Code: N13.5 - Crossing vessel and stricture of ureter without hydronephrosis Diagnosis: Secondary Status: Acute (3) Lumbar disc herniation ICD Code: M51.26 - Other intervertebral disc displacement, lumbar region Diagnosis: Principal (4) Intractable pain ICD Code: R52 - Pain, unspecified Diagnosis: Principal Status: Acute Procedures none Brief History - From Admission 81-year-old male with a past medical history significant for a history of bladder cancer 4 years ago, diabetes mellitus, hypertension, hyperlipidemia and diabetic neuropathy presents to the emergency department with left-sided back/ flank pain 1 week. The patient reports that his urologist is Dr. Mckeon and he missed an appointment with him yesterday because his pain was so severe he was unable to get out of bed. He reports that he has a J stent was exchanged approximately every 6 months. He reports his left-sided back/flank pain is severe in nature and is worse when he moves his legs. He is unable to sit up because the pain is so severe. He does have a history of sciatica however he reports this was on his right side. He denies any dysuria or blood in his urine. Denies fever/chills. Is able to move his lower extremities spontaneously however experiences severe pain with movement. CBC/BMP: 10/11/17 1039 10/14/17 0627 Significant Findings Laboratory Tests Test 10/14/17 06:27 Blood Urea Nitrogen 33 MG/DL (7-18) Creatinine 1.38 MG/DL (0.60-1.30) Random Glucose 110 MG/DL (74-106) Albumin 2.6 GM/DL (3.4-5.0) Potassium Level 3.4 MEQ/L (3.5-5.1) Estimat Glomerular Filtration Rate 50 ML/MIN (>89) Imaging Last Impressions Abdomen X-Ray 10/13/17 0000 Signed Impressions: Service Date/Time: Friday, October 13, 2017 09:56 - CONCLUSION: 1. Nonspecific grouping of nondistended air-filled small bowel in the right lower quadrant. 2. Otherwise, nonobstructive bowel gas pattern. 3. Double-J left ureteral stent in place. Gonzalo Love MD Thoracic Spine MRI 10/12/17 0000 Signed Impressions: Service Date/Time: Thursday, October 12, 2017 07:36 - CONCLUSION: Oval extra dural mass identified along the posterior thecal sac at the level of C5/C6. In the prior history of malignancy this could represent a site of metastatic disease. Recommend further evaluation of the thoracic spine with contrast.. Dinah Lira MD Lumbar Spine MRI 10/10/17 0000 Signed Impressions: Service Date/Time: Tuesday, October 10, 2017 19:46 - CONCLUSION: 1. Multilevel lumbar spine degenerative changes as above. 2. Mild spinal stenosis at L5/S1, mostly the right lateral recess. Possible impingement on the transiting right S1 nerve root. 3. Moderate bilateral foraminal stenosis at L5/S1 and mild to moderate bilateral foraminal stenosis at L4/L5. Generally mild degrees of foraminal encroachment at other levels. 4. There is patchy, reactive appearing marrow edema at essentially all levels. Fernando Donald MD Abdomen/Pelvis CT 10/09/17 0000 Signed Impressions: Service Date/Time: September 13:32 - CONCLUSION: 1. Left- sided double-J ureteral stent in good position with persistent moderate hydroureteronephrosis on the left. 2. No right-sided calculi or obstructive uropathy. 3. Numerous layering gallstones in the gallbladder. 4. Mild constipation. Nick Quinteros MD PE at Discharge GENERAL: Awake alert and oriented 3 talkative and cooperative appears to be in some mild to moderate pain SKIN: Warm and dry. HEAD: Atraumatic. Normocephalic. EYES: Pupils equal and round. No scleral icterus. No injection or drainage. Extraocular muscles intact ENT: No nasal bleeding or discharge. Mucous membranes pink and moist. Tongue is midline NECK: Trachea midline. No JVD. Supple CARDIOVASCULAR: Regular rate and rhythm. S1-S2 no S3 or S4 RESPIRATORY: No accessory muscle use. Clear to auscultation. Breath sounds equal bilaterally. Obese- Chavez catheter in place GASTROINTESTINAL: Abdomen soft, non-tender, nondistended. Hepatic and splenic margins not palpable. MUSCULOSKELETAL: Extremities without clubbing, cyanosis, or edema. No obvious deformities. NEUROLOGICAL: Awake and alert. No obvious cranial nerve deficits. Motor grossly within normal limits. 4 out of 5 muscle strength in the arms and legs. Normal speech. PSYCHIATRIC: Appropriate mood and affect; insight and judgment normal. Hospital Course 81-year-old male with a past medical history significant for a history of bladder cancer 4 years ago, diabetes mellitus, hypertension, hyperlipidemia and diabetic neuropathy presents to the emergency department with left-sided back/ flank pain 1 week. The patient reports that his urologist is Dr. Mckeon and he missed an appointment with him yesterday because his pain was so severe he was unable to get out of bed. He reports that he has a J stent was exchanged approximately every 6 months. He reports his left-sided back/flank pain is severe in nature and is worse when he moves his legs. He is unable to sit up because the pain is so severe. He does have a history of sciatica however he reports this was on his right side. He denies any dysuria or blood in his urine. Denies fever/chills. Is able to move his lower extremities spontaneously however experiences severe pain with movement. Patient still feels very weak. Especially in bilateral lower extremities. MRI showed a mass in C5-C6 area Await neurosurgical reevaluation this may hold up discharge to SNF Neurosurgery has cleared the patient and can be discharged to SNF today Pt Condition on Discharge: Good Discharge Disposition: Discharge to SNF Discharge Time: > 30 minutes Discharge Instructions DIET: Follow Instructions for: Heart Healthy Diet, Diabetic Diet Speech Therapy-Diet Recommends: Regular Activities you can perform: Weight Bearing as John Follow up Referrals: Neurosurgery - 2 Weeks with Jordan López MD Call the office at [phone] to schedule a follow up appointment in approximately 2 weeks. Occupational Therapy Physical Therapy Urology - 2 Weeks with Itz Mckeon MD New Medications: Methocarbamol (Robaxin) 500 Mg Tab 1000 MG PO QID for Muscle Spasm, #60 TAB 0 Refills Oxycodone-Acetaminophen (Percocet) 10-325 mg Tab 1 TAB PO Q6H PRN for PAIN, #60 TAB 0 Refills Nifedipine ER 24 HR (Nifedipine ER 24 HR) 30 Mg Tab 30 MG PO DAILY for Blood Pressure Management, #30 TAB Sennosides-Docusate Sodium (Gnp Senna Plus 8.6-50 mg) 8.6 Mg-50 Mg Tab 2 TAB PO BID for Constipation, #120 TAB Continued Medications: Buspirone (Buspirone) 10 Mg Tab 10 MG PO BID for Anxiety, TAB 0 Refills Doxazosin (Doxazosin) 4 Mg Tab 4 MG PO BID, #30 TAB 0 Refills Gabapentin (Gabapentin) 300 Mg Cap 300 MG PO BID, #60 CAP 0 Refills Simvastatin (Simvastatin) 40 Mg Tab 40 MG PO HS for Cholesterol Management, #30 TAB 0 Refills Discontinued Medications: Hydrochlorothiazide (Hydrochlorothiazide) 50 Mg Tab 50 MG PO DAILY, #60 TAB 0 Refills Lisinopril (Lisinopril) 20 Mg Tab Unknown Dose PO DAILY, #30 TAB 0 Refills Additional Information CONTINUE Levar Sanchez DO Oct 14, 2017 12:44
[2017-10-14] MEDS ORDERED: POTASSIUM CHLORIDE 20 MEQ CONTROLLED RELEASE TAB PO ONE (13:00)
[2017-10-14 13:18] VITALS: BP 193/74; PULSE 95; RESP 14; TEMP 98; O2SAT 99
== END 2017-10-14 17:08 | DRG 392 ==
LOC: NEPC 11:34 → NEDA 18:19 → NEPGCP 22:19 → OBSVTOIN 10-10 08:38
PROVIDERS: ADMIT Hospitalist; ATTEND Hospitalist
DX: R10.9 Unspecified abdominal pain (principal); E11.40 Type 2 diabetes mellitus with diabetic neuropathy, unspecified; N13.30 Unspecified hydronephrosis; G95.9 Disease of spinal cord, unspecified; N13.5 Crossing vessel and stricture of ureter without hydronephrosis; M48.061 Spinal stenosis, lumbar region without neurogenic claudication; M51.26 Other intervertebral disc displacement, lumbar region; G89.29 Other chronic pain; M54.5 Low back pain; K59.00 Constipation, unspecified; Z85.51 Personal history of malignant neoplasm of bladder; R53.1 Weakness; R33.9 Retention of urine, unspecified; I12.9 Hypertensive chronic kidney disease with stage 1 through stage 4 chronic kidney disease, or unspecified chronic kidney disease; N18.9 Chronic kidney disease, unspecified; E78.5 Hyperlipidemia, unspecified; E66.9 Obesity, unspecified; Z68.31 Body mass index [BMI] 31.0-31.9, adult
CPT/HCPCS: 72146; 72147; 72148; 74018; 74176; 80048; 80053; 80069; 81001; 82948; 83690; 83735; 85025; 85027; 96372; 96374; 96375; 96376; A9577; G0378; G8987-GP; G8988-GP; J1644; J2270; J2405; J7030